=== PATIENT | male | born 1980 | race Caucasian/White ===

== ENCOUNTER 2017-04-27 15:31 | Emergency (ER) | payer OTHER ==
[2017-04-27] MEDS ORDERED: LORAZEPAM INJ 2 MG/1 ML VIAL IV ONE ×2 (15:34→19:54)
[2017-04-27 15:50] LABS: ABSOLUTE BASOPHILS # (AUTO) 0.1 10^3/uL (0.0-0.2); ABSOLUTE EOSINOPHILS # (AUTO) 0.2 10^3/uL (0.0-0.6); ABSOLUTE LYMPHOCYTES (AUTO) 1.6 10^3/uL (0.5-4.7); ABSOLUTE MONOCYTES (AUTO) 0.5 10^3/uL (0.1-1.4); ABSOLUTE NEUT (AUTO) 3.9 10^3/uL (1.7-8.2); BASOPHILS % (AUTO) 0.9 % (0-2); EOSINOPHILS % (AUTO) 3.3 % (0-6); HEMATOCRIT 44.3 % (37.9-51.0); HEMOGLOBIN 14.8 g/dL (13.5-17.0); LYMPHOCYTES % (AUTO) 25.8 % (13-45); MEAN CORPUSCULAR HEMOGLOBIN 29.2 pg (27.0-33.4); MEAN CORPUSCULAR HGB CONC 33.5 g/dL (32.0-36.0); MEAN CORPUSCULAR VOLUME 87 fl (80-97); MONOCYTES % (AUTO) 7.8 % (3-13); PLATELET COUNT 320 10^3/uL (150-450); RED BLOOD COUNT 5.09 10^6/uL (4.35-5.55); RED CELL DISTRIBUTION WIDTH 14.5 % (11.5-14.0); SEGMENTED NEUTROPHILS % (AUTO) 62.2 % (42-78); TOTAL CELLS COUNTED % (AUTO) 100 %; WHITE BLOOD COUNT 6.2 10^3/uL (4.0-10.5)
--- NOTE | 2017-04-27 15:55 | ER Document Report ---
ED General - General Stated Complaint: SUICIDAL IDEATION Time Seen by Provider: 04/27/17 15:34 Notes: 36-year-old male presents with multidrug overdose. He took 6 propranolol and 6 Seroquel this morning at the same time as he stopped drinking after a seven-day median. History of alcoholism. Positive suicidal ideation. He has been vomiting is no abdominal pain. No dizziness or fainting. Brought in by EMS with normal vital signs blood sugar. Actively suicidal. TRAVEL OUTSIDE OF THE [place] IN LAST 30 DAYS: No - Related Data Allergies/Adverse Reactions: No Known Allergies Allergy (Verified 04/27/17 17:40) Past Medical History - Social History Smoking Status: Current Every Day Smoker Smoking Education Provided: Yes - The patient ED visit today was directly related to their abuse of tobacco. Family History: Reviewed & Not Pertinent Psychiatric Medical History: Reports: Hx Depression Review of Systems - Review of Systems Notes: REVIEW OF SYSTEMS GEN: Denies fever, chills, weight loss ENT: Denies sore throat, nasal discharge, ear pain EYES: Denies blurry vision, eye pain, discharge CV: Denies chest pain, palpitations, edema RESP: Denies cough, shortness of breath, wheezing GI: Denies abdominal pain, positive nausea MSK: Denies joint pain/swelling, edema, SKIN: Denies rash, skin lesions LYMPH: Denies swollen glands/lymph nodes NEURO: Denies headache, focal weakness or numbness, dizziness PSYCH: Alcoholism and depression with suicidal ideation PHYSICAL EXAMINATION General: Acutely ill, slightly pale Head: Atraumatic, normocephalic ENT: Mouth normal, oropharynx moist, no exudates or tonsillar enlargement Eyes: Conjunctiva normal, pupils equal, lids normal Neck: No JVD, supple, no guarding CVS: Normal rate, regular rhythm, no murmurs Resp: No resp distress, equal and normal breath sounds bilaterally GI: Nondistended, soft, no tenderness to palpation, no rebound or guarding Ext: No deformities, no edema, normal range of motion in upper and lower ext Back: No CVA or midline TTP Skin: No rash, warm Lymphatic: No lymphadeopathy noted Neuro: Awake, alert. Face symmetric. GCS 15. Tremulous, mild with tongue and hand fasciculations. Psychiatric: Suicidal ideation present. Physical Exam - Vital signs Vitals: Resp BP Pulse Ox 16 100/69 92 04/27/17 15:48 04/27/17 15:48 04/27/17 15:48 Course - Re-evaluation Re-evalutation: 04/27/17 15:55 Acute ingestion of small doses of propranolol and Seroquel. Blood pressure is soft but not hypotensive, patient is not bradycardic or hypoglycemic so I doubt a significant for parental ingestion. Does not meet criteria for truncal. In terms of Seroquel he looks sluggish but is not comatose. Will check EKG for intervals, check tox labs, monitor closely. Will place on IVC papers. 04/27/17 16:30 Patient reassessed. Slightly somnolent after Ativan, but no longer exhibiting signs of withdrawal. Getting IV fluids from EMS. Labs so far are normal and EKG shows normal intervals. We will continue to observe. Placed on petition for IVC and constant with the psych team and placed a call for psychiatry consult. 04/27/17 18:08 SS. No signs of withdrawal sleeping calmly. Vital signs are normal. Lab evaluation is negative. At this point I am going to medically clear the patient for psych consult in the morning. - Vital Signs Vital signs: Temp Pulse Resp BP Pulse Ox 97.8 F 21 H 100/58 L 95 04/27/17 16:34 04/27/17 18:00 04/27/17 18:00 04/27/17 18:00 - Laboratory Result Diagrams: 04/27/17 15:00 04/27/17 15:00 Laboratory results interpreted by me: 04/27/17 04/27/17 15:00 15:00 RDW 14.5 H Chloride 96 L Glucose 161 H Salicylates < 1.0 L Acetaminophen < 10 L - EKG Interpretation by Tx EKG shows normal: Sinus rhythm Rate: Normal Rhythm: NSR - Normal intervals Critical Care Note - Critical Care Note Total time excluding time spent on procedures (mins): 32 Comments: The above patient is critically ill. Not including procedures, but including direct re-evaluations, speaking with patient and/or consultants, interpreting results, and documenting, I spent the total amount of minute listed listed above on critical care time Discharge - Discharge Clinical Impression: Alcohol withdrawal delirium, acute, hyperactive Intentional propranolol overdose Qualifiers: Encounter type: sequela Qualified Code(s): T44.7X2S - Poisoning by beta- adrenoreceptor antagonists, intentional self-harm, sequela Condition: Good Disposition: PSYCH HOSP/UNIT
[2017-04-27 16:13] LABS: ANION GAP 18 (5-19); BLOOD UREA NITROGEN 18 mg/dL (7-20); CALCIUM 8.7 mg/dL (8.4-10.2); CARBON DIOXIDE 24 mmol/L (22-30); CHLORIDE 96 mmol/L (98-107); GLUCOSE 161 mg/dL (75-110); POTASSIUM 3.9 mmol/L (3.6-5.0); SODIUM 138.1 mmol/L (137-145)
[2017-04-27 16:16] LABS: ACETAMINOPHEN < 10 ug/mL (10-30); SALICYLATE < 1.0 mg/dL (2.0-20.0)
[2017-04-27 16:29] LABS: URINE AMPHETAMINES SCREEN NEGATIVE; URINE BARBITURATES SCREEN NEGATIVE; URINE BENZODIAZEPINES SCREEN NEGATIVE; URINE COCAINE SCREEN NEGATIVE; URINE MARIJUANA (THC) SCREEN NEGATIVE; URINE METHADONE SCREEN NEGATIVE; URINE PHENCYCLIDINE SCREEN NEGATIVE
[2017-04-27] MEDS ORDERED: LORAZEPAM INJ 2 MG/1 ML VIAL ONE (20:00)
--- NOTE | 2017-04-28 10:45 | EKG REPORT ---
SEVERITY:- NORMAL ECG - SINUS RHYTHM : Confirmed by: Miguel John 28-Apr-2017 10:45:01
--- NOTE | 2017-04-28 10:47 | EKG REPORT ---
SEVERITY:- NORMAL ECG - SINUS RHYTHM : Confirmed by: Miguel John 28-Apr-2017 10:45:04
--- NOTE | 2017-04-28 18:15 | ER Document Report ---
Doctor's Note Notes: 04/28/17 18:13 Rounds earlier today: Chart reviewed and patient interviewed. Patient took an overdose of no significant consequence of about 6 propanolol and 6 Seroquel pills. He says he was thinking about suicide. Also has been drinking alcohol. Labs were all normal. Vital signs are all normal, except for one heart rate of 53. Patient appears to be medically stable for transfer or discharge. Juanita Hayes MD
--- NOTE | 2017-04-28 18:15 | PSYCHOLOGICAL NOTE ---
Psych Note - Psych Note Psych Note: Reason for consult: Suicidal ideation Time of consult 9:15 am Time of Disposition 10:30 am Contact Permissions: None Patient is a 37-year-old male. Patient reports [facility] to [facility] [place] because they have classes and groups of people who experience what he experiences in [place]. Patient reports he wants to be around other veterans. Patient reports if he is not able to get a bed at the [facility] in [place] that he wants his mother to come pick him up so she could drive him there. Patient reports he lives with his parents. Patient reports that it is around the time of the year anniversary of his first deployment to [place]. Patient reports that he wants other people to talk to about his experience. Patient reports that he was in combat while in [place]. 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 Patient reports he was diagnosed with PTSD. Patient reports that he took more than his prescribed dosage then called the hotline so that he could go to the [facility] in [place]. Patient reports he took 6 of his pills. Patient reports that he does not have a plan to kill himself but that he wants to go to an inpatient placement. Patient reports that he wanted clinician to know that if she could not get him into [place] that he would drive himself with his parents. Patient reports he does not have a social support system, does not attend any groups in [place]. Patient reports that he does not have any combat veterans in the area. She reports he rarely leaves his home and does not feel motivated to do anything. She reports that he sees an outpatient therapist periodically at the [facility] in [place]. Diagnosis: 311 (F32.9) Unspecified Depressive Disorder, per history R/O 309.9 (F43.9) Unspecified Trauma and Stressor Related Disorder (patient reported PTSD history) Impression/plan: Patient is psychiatrically cleared for discharge. Recommendation for patient to follow-up with outpatient provider at the [facility]. Clinician observed patient presented to the ED with intention of getting transferred to [facility]. Consulted with Dr. Ryder regarding the management and care of patient.
[2017-04-28 18:36] VITALS: BP 128/74
== END 2017-04-28 18:32 | disposition home or self-care (01) ==
LOC: ER 15:31
DX: T44.7X2A Poisoning by beta-adrenoreceptor antagonists, intentional self-harm, initial encounter (principal); T43.592A Poisoning by other antipsychotics and neuroleptics, intentional self-harm, initial encounter; F43.10 Post-traumatic stress disorder, unspecified; F10.231 Alcohol dependence with withdrawal delirium; F32.9 Major depressive disorder, single episode, unspecified; R11.10 Vomiting, unspecified; F17.200 Nicotine dependence, unspecified, uncomplicated
CPT/HCPCS: 93005; 96376; 99291; 96374; 36415; 80307 ×3; 85025; 80048; 93010; J2060

== ENCOUNTER 2017-08-24 09:53 | Emergency (ER) | payer OTHER ==
--- NOTE | 2017-08-24 10:13 | ER Document Report ---
ED Medical Screen (RME) - General Chief Complaint: Suicidal Ideation Stated Complaint: PYSCH EVAULATION Time Seen by Provider: 08/24/17 10:11 Notes: The patient is a 37-year-old male, past medical history PTSD, chronic alcoholic , presents with increasing drinking and combativeness. He last drank this morning and thinks he might be withdrawing. [facility] PE: Mildly agitated. Tachycardia. Appears intoxicated. I have greeted and performed a rapid initial assessment of this patient. A comprehensive ED assessment and evaluation of the patient, analysis of test results and completion of the medical decision making process will be conducted by additional ED providers. TRAVEL OUTSIDE OF THE [place] IN LAST 30 DAYS: No - Related Data Allergies/Adverse Reactions: No Known Allergies Allergy (Verified 08/24/17 09:54) Past Medical History - Social History Family history: Thyroid Disfunction Renal/ Medical History: Denies: Hx Peritoneal Dialysis Psychiatric Medical History: Reports: Hx Depression Physical Exam - Vital signs Vitals: Temp Pulse Resp BP 98.0 F 128 H 22 H 124/86 H 08/24/17 09:59 08/24/17 09:59 08/24/17 09:59 08/24/17 09:59 Course - Vital Signs Vital signs: Temp Pulse Resp BP Pulse Ox 98.0 F 128 H 22 H 124/86 H 08/24/17 09:59 08/24/17 09:59 08/24/17 09:59 08/24/17 09:59
[2017-08-24] MEDS ORDERED: NORMAL SALINE 1000 ML 1,000 ML IV PRN (10:14)
--- NOTE | 2017-08-24 10:32 | ER Document Report ---
Addendum entered and electronically signed by VIC MONTAGUE LCSWA 08/27/17 11: 58: Discharge - Discharge Clinical Impression: Alcohol abuse, Post traumatic stress disorder (PTSD), Suicidal ideation Alcohol intoxication Qualifiers: Complication of substance-induced condition: uncomplicated Qualified Code(s): F10.920 - Alcohol use, unspecified with intoxication, uncomplicated Condition: Stable Disposition: HOME, SELF-CARE Additional Instructions: ACUTE ALCOHOL INTOXICATION and ALCOHOL ABUSE: Your evaluation revealed very high levels of alcohol. You can from drinking a large amount of alcohol rapidly! Further, there's the risk of falls , traffic accidents, and fights. A high portion (about 50 percent) of the serious injuries seen in hospital emergency rooms are caused by alcohol. Alcohol overdosage is usually due to an underlying emotional or psychiatric problem. You may benefit from counselling. If "binge" drinking is an ongoing problem for you, or if you drink ANY AMOUNT of alcohol EVERY day, you most likely have a tendency to alcoholism. You should avoid alcohol totally. We can refer you for treatment. Persons with alcohol problems are often also prone to other addictions -- you should discuss any use of medications or drugs with the doctor. You should be watched at home for the next several hours by someone who has not been drinking. Get extra fluids for the next 24 hours. Call the doctor if there is repeated vomiting, increasing headache, decreasing level of alertness, or any other worsening. CHRONIC ALCOHOLISM and ALCOHOL ABUSE: Your evaluation reveals evidence of chronic alcoholism, an addiction to alcohol. The tendency to alcoholism may be inherited. Chronic use of alcohol weakens muscles, causes fatty deposits in the liver , damages the stomach, makes you more prone to infections, and can cause defects in unborn children. In the long run, brain atrophy and cirrhosis of the liver result. You are also at greater risk for certain types of cancer, such as cancer of the mouth, throat, stomach, and liver. Counselling services are available to help you. In-hospital treatment programs often help. Support groups such as Alcoholics Anonymous can be very useful in beating this addiction. Your physician can make a referral for you. As alcoholics often are prone to other addictions, you should discuss your use of any other medications with the doctor. ALCOHOL WITHDRAWAL: Your symptoms are caused by alcohol withdrawal. After a period of frequent drinking, the brain and body are changed by the alcohol. When you quit or reduce your drinking, the nervous system becomes unstable. Withdrawal symptoms can start a few hours after your last drink, but sometimes don't begin until a couple of days later. Symptoms can include shakiness, sweating, insomnia, nausea , vomiting, fearfulness, hallucinations, and seizures. In addition to the acute effects of alcohol withdrawal, we often have to deal with the medical effects of alcoholism. These problems often include dehydration, stomach irritation, intestinal bleeding, low blood sugar, liver disease, and pancreas inflammation. Treatment for alcohol withdrawal includes mild sedatives, vitamins, and fluids. You need to be with someone who can help if symptoms become severe. Many patients can withdraw at home. Admission to the hospital or a detox facility may be necessary if withdrawal symptoms are severe and uncontrollable. Abstaining from alcohol is the only effective long-term treatment. If you start drinking again, you will not be able to control yourself after the first drink. Treatment programs are available. In addition, many alcoholics benefit from Alcoholics Anonymous or other support groups available through your counselor or druze aircraft dispatcher. AL-TONYA and NIC-KENDRA are support groups for friends and family members of an alcoholic. Go to the emergency room if you develop persistent vomiting, severe abdominal pain, fever, shortness of breath, hallucinations, uncontrollable tremors, or seizures. Post-Traumatic Stress Disorder You seem to have post-traumatic stress disorder (PTSD). PTSD can cause chronic anxiety, sleeping problems, social withdrawal, and drug abuse. It can occur following a traumatic personal experience such as an accident, rape, assault, or of a loved one, or after experiencing a war or natural disaster. Symptoms may be delayed for days or even years. Emotional numbing, the inability to express grief, is usually the earliest sign. There may be apathy or agitation, aggression, and inability to perform ordinary tasks. Often there are frightening nightmares and sudden, intruding memories of the trauma. Panic attacks and feelings of guilt are common. Alcohol and drug use make post- traumatic stress symptoms worse. Medication may be temporarily necessary to combat anxiety, panic attacks, and depression. Medicine should not be considered a "cure." You must deal with the trauma and prepare to go on. Group therapy is often helpful. This helps you "talk through" the problem with others who share your symptoms. We can provide you with an appropriate referral. [facility] on 08/30/2017 at 11 AM. You have also been provided additional resources which include residential treatment programs for alcohol abuse. AT ANY TIME, IF YOUR SYMPTOMS CHANGE SIGNIFICANTLY OR WORSEN OR YOU DEVELOP NEW SYMPTOMS, RETURN TO THE EMERGENCY DEPARTMENT IMMEDIATELY FOR RE- EVALUATION. Referrals: [facility] [Provider Group] - 08/30/17 11:00 am (You also have an appointment for medication mangement tomorrow 08/28/2017 at 10:30) Original Note: ED Psych Disorder / Suicide - General Mode of Arrival: Ambulatory Information source: Patient, Relative - FATHER TRAVEL OUTSIDE OF THE [place] IN LAST 30 DAYS: No - HPI Patient complains to provider of: Agitated, Suicidal ideation Onset: Yesterday Onset was: Cannot confirm Quality of pain: No pain Severity: Moderate Suicide Risk Factors: Male, Other mental health dx. Situational problems related to: Other - PTSD Normal mood: No Associated symptoms: Agitated, Depressed, Irritable, Tearful, Unable to sleep Similar symptoms previously: No Recently seen / treated by doctor: No <SANDEEP MAHONEY - Last Filed: 08/24/17 19:40> <VIC MONTAGUE - Last Filed: 08/27/17 11:57> <CHRISTOPHER DAILEY - Last Filed: 08/27/17 16:22> - General Chief Complaint: Suicidal Ideation Stated Complaint: PYSCH EVAULATION Time Seen by Provider: 08/24/17 10:11 - HPI Notes: This patient apparently has a long-standing problem with PTSD and alcoholism. [facility]. Parent says patient ran out of all of his medicines about a month ago and did okay for a while but now is back to his depressed, alcoholic, suicidal baseline. (SANDEEP MAHONEY) - Related Data Allergies/Adverse Reactions: No Known Allergies Allergy (Verified 08/24/17 09:54) Past Medical History - General Information source: Patient, Relative - Social History Smoking Status: Unknown if Ever Smoked Cigarette use (# per day): No Chew tobacco use (# tins/day): No Frequency of alcohol use: Heavy Drug Abuse: None Family History: Reviewed & Not Pertinent Patient has suicidal ideation: No Patient has homicidal ideation: No - Past Medical History Cardiac Medical History: Reports: None Pulmonary Medical History: Reports: None EENT Medical History: Reports: None Neurological Medical History: Reports: None Endocrine Medical History: Reports: None Renal/ Medical History: Reports: None. Denies: Hx Peritoneal Dialysis Malignancy Medical History: Reports None GI Medical History: Reports: None Musculoskeltal Medical History: Reports None Psychiatric Medical History: Reports: Hx Depression, Hx Post Traumatic Stress Disorder, Other - ALCOHOLISM <SANDEEP MAHONEY - Last Filed: 08/24/17 19:40> Review of Systems - Review of Systems Constitutional: No symptoms reported EENT: No symptoms reported Cardiovascular: No symptoms reported Respiratory: No symptoms reported Gastrointestinal: Nausea Genitourinary: No symptoms reported Musculoskeletal: No symptoms reported Skin: No symptoms reported Neurological/Psychological: See HPI <SANDEEP MAHONEY - Last Filed: 08/24/17 19:40> Physical Exam - Vital signs Interpretation: Tachycardic, Tachypneic. No: Hypertensive - General General appearance: Anxious In distress: None - HEENT Head: Normocephalic Eyes: Normal Conjunctiva: Normal Ears: Normal Nasal: Normal Mouth/Lips: Normal Mucous membranes: Dry - Respiratory Respiratory status: No respiratory distress Breath sounds: Normal - Cardiovascular Rhythm: Regular Heart sounds: Normal auscultation Murmur: No - Abdominal Inspection: Normal Distension: No distension Bowel sounds: Hypoactive - Extremities General upper extremity: Normal inspection General lower extremity: Normal inspection - Neurological Neuro grossly intact: Yes Cognition: Normal Orientation: AAOx4 - Psychological Associated symptoms: Agitated, Depressed, Tearful, Other - ADMITS TO S.I. - Skin Skin Temperature: Warm Skin Moisture: Dry Skin Color: Normal Skin Turgor: Elastic <SANDEEP MAHONEY - Last Filed: 08/24/17 19:40> <VIC MONTAGUE - Last Filed: 08/27/17 11:57> <CHRISTOPHER DAILEY - Last Filed: 08/27/17 16:22> - Vital signs Vitals: Temp Pulse Resp BP 98.0 F 128 H 22 H 124/86 H 08/24/17 09:59 08/24/17 09:59 08/24/17 09:59 08/24/17 09:59 - HEENT Notes: STRONG ETHANOL ODOR TO BREATH (SANDEEP MAHONEY) Course - Laboratory Result Diagrams: 08/24/17 10:25 08/24/17 10:25 - [facility] shows normal: Sinus rhythm, [place], Intervals, QRS Complexes. abnormal: ST-T Waves - BORDERLINE T ABNLS, NS Rate: Tachycardia <DENZELSANDEEP - Last Filed: 08/24/17 19:40> - Laboratory Result Diagrams: 08/24/17 10:25 08/24/17 10:25 <VIC MONTAGUE - Last Filed: 08/27/17 11:57> - Laboratory Result Diagrams: 08/24/17 10:25 08/24/17 10:25 <CHRISTOPHER DAILEY - Last Filed: 08/27/17 16:22> - Vital Signs Vital signs: Temp Pulse Resp BP Pulse Ox 97.8 F 73 18 117/86 H 99 08/26/17 22:00 08/26/17 22:00 08/26/17 22:00 08/26/17 22:00 08/26/17 22:00 - Laboratory Laboratory results interpreted by wi: 08/24/17 08/24/17 08/24/17 10:25 10:25 11:45 RDW 14.8 H Plt Count 526 H Basophils % 2.2 H Sodium 148.8 H Glucose 113 H AST 73 H ALT 73 H Urine Protein 30 H Salicylates < 1.0 L Acetaminophen < 10 L Serum Alcohol 443 H* Discharge <SANDYMAYKELCHARLESSANDEEP - Last Filed: 08/24/17 19:40> <VIC MONTAGUE - Last Filed: 08/27/17 11:57> <CHRISTOPHER DAILEY - Last Filed: 08/27/17 16:22> - Discharge Clinical Impression: Alcohol abuse, Post traumatic stress disorder (PTSD), Suicidal ideation Alcohol intoxication Qualifiers: Complication of substance-induced condition: uncomplicated Qualified Code(s): F10.920 - Alcohol use, unspecified with intoxication, uncomplicated Condition: Stable Disposition: HOME, SELF-CARE Additional Instructions: ACUTE ALCOHOL INTOXICATION and ALCOHOL ABUSE: Your evaluation revealed very high levels of alcohol. You can from drinking a large amount of alcohol rapidly! Further, there's the risk of falls , traffic accidents, and fights. A high portion (about 50 percent) of the serious injuries seen in hospital emergency rooms are caused by alcohol. Alcohol overdosage is usually due to an underlying emotional or psychiatric problem. You may benefit from counselling. If "binge" drinking is an ongoing problem for you, or if you drink ANY AMOUNT of alcohol EVERY day, you most likely have a tendency to alcoholism. You should avoid alcohol totally. We can refer you for treatment. Persons with alcohol problems are often also prone to other addictions -- you should discuss any use of medications or drugs with the doctor. You should be watched at home for the next several hours by someone who has not been drinking. Get extra fluids for the next 24 hours. Call the doctor if there is repeated vomiting, increasing headache, decreasing level of alertness, or any other worsening. CHRONIC ALCOHOLISM and ALCOHOL ABUSE: Your evaluation reveals evidence of chronic alcoholism, an addiction to alcohol. The tendency to alcoholism may be inherited. Chronic use of alcohol weakens muscles, causes fatty deposits in the liver , damages the stomach, makes you more prone to infections, and can cause defects in unborn children. In the long run, brain atrophy and cirrhosis of the liver result. You are also at greater risk for certain types of cancer, such as cancer of the mouth, throat, stomach, and liver. Counselling services are available to help you. In-hospital treatment programs often help. Support groups such as Alcoholics Anonymous can be very useful in beating this addiction. Your physician can make a referral for you. As alcoholics often are prone to other addictions, you should discuss your use of any other medications with the doctor. ALCOHOL WITHDRAWAL: Your symptoms are caused by alcohol withdrawal. After a period of frequent drinking, the brain and body are changed by the alcohol. When you quit or reduce your drinking, the nervous system becomes unstable. Withdrawal symptoms can start a few hours after your last drink, but sometimes don't begin until a couple of days later. Symptoms can include shakiness, sweating, insomnia, nausea , vomiting, fearfulness, hallucinations, and seizures. In addition to the acute effects of alcohol withdrawal, we often have to deal with the medical effects of alcoholism. These problems often include dehydration, stomach irritation, intestinal bleeding, low blood sugar, liver disease, and pancreas inflammation. Treatment for alcohol withdrawal includes mild sedatives, vitamins, and fluids. You need to be with someone who can help if symptoms become severe. Many patients can withdraw at home. Admission to the hospital or a detox facility may be necessary if withdrawal symptoms are severe and uncontrollable. Abstaining from alcohol is the only effective long-term treatment. If you start drinking again, you will not be able to control yourself after the first drink. Treatment programs are available. In addition, many alcoholics benefit from Alcoholics Anonymous or other support groups available through your counselor or druze aircraft dispatcher. AL-ANOSanta and NIC-TEEN are support groups for friends and family members of an alcoholic. Go to the emergency room if you develop persistent vomiting, severe abdominal pain, fever, shortness of breath, hallucinations, uncontrollable tremors, or seizures. Post-Traumatic Stress Disorder You seem to have post-traumatic stress disorder (PTSD). PTSD can cause chronic anxiety, sleeping problems, social withdrawal, and drug abuse. It can occur following a traumatic personal experience such as an accident, rape, assault, or of a loved one, or after experiencing a war or natural disaster. Symptoms may be delayed for days or even years. Emotional numbing, the inability to express grief, is usually the earliest sign. There may be apathy or agitation, aggression, and inability to perform ordinary tasks. Often there are frightening nightmares and sudden, intruding memories of the trauma. Panic attacks and feelings of guilt are common. Alcohol and drug use make post- traumatic stress symptoms worse. Medication may be temporarily necessary to combat anxiety, panic attacks, and depression. Medicine should not be considered a "cure." You must deal with the trauma and prepare to go on. Group therapy is often helpful. This helps you "talk through" the problem with others who share your symptoms. We can provide you with an appropriate referral. Please follow-up with your local [facility] for your continued substance abuse and mental health treatment on 08/30/2017 at 11 AM. You have also been provided additional resources which include residential treatment programs for alcohol abuse. AT ANY TIME, IF YOUR SYMPTOMS CHANGE SIGNIFICANTLY OR WORSEN OR YOU DEVELOP NEW SYMPTOMS, RETURN TO THE EMERGENCY DEPARTMENT IMMEDIATELY FOR RE- EVALUATION. Prescriptions: Olanzapine [Zyprexa 5 mg Tablet] 5 mg PO QHS #14 tablet Buspirone HCl [Buspar 5 mg Tablet] 1 tab PO BID #30 tab Referrals: [facility] [Provider Group] - 08/30/17 11:00 am (You also have an appointment for medication mangement tomorrow 08/28/2017 at 10:30)
--- NOTE | 2017-08-24 10:37 | EKG REPORT ---
SEVERITY:- BORDERLINE ECG - SINUS TACHYCARDIA BORDERLINE T WAVE ABNORMALITIES : Confirmed by: Bry Gatica MD 24-Aug-2017 10:36:18
[2017-08-24 10:41] LABS: ABSOLUTE BASOPHILS # (AUTO) 0.1 10^3/uL (0.0-0.2); ABSOLUTE EOSINOPHILS # (AUTO) 0.3 10^3/uL (0.0-0.6); ABSOLUTE LYMPHOCYTES (AUTO) 1.8 10^3/uL (0.5-4.7); ABSOLUTE MONOCYTES (AUTO) 0.4 10^3/uL (0.1-1.4); ABSOLUTE NEUT (AUTO) 2.2 10^3/uL (1.7-8.2); BASOPHILS % (AUTO) 2.2 % (0-2); EOSINOPHILS % (AUTO) 5.7 % (0-6); HEMATOCRIT 44.5 % (37.9-51.0); HEMOGLOBIN 15.2 g/dL (13.5-17.0); LYMPHOCYTES % (AUTO) 36.8 % (13-45); MEAN CORPUSCULAR HEMOGLOBIN 31.2 pg (27.0-33.4); MEAN CORPUSCULAR HGB CONC 34.2 g/dL (32.0-36.0); MEAN CORPUSCULAR VOLUME 91 fl (80-97); MONOCYTES % (AUTO) 9.1 % (3-13); PLATELET COUNT 526 10^3/uL (150-450); RED BLOOD COUNT 4.89 10^6/uL (4.35-5.55); RED CELL DISTRIBUTION WIDTH 14.8 % (11.5-14.0); SEGMENTED NEUTROPHILS % (AUTO) 46.2 % (42-78); TOTAL CELLS COUNTED % (AUTO) 100 %; WHITE BLOOD COUNT 4.8 10^3/uL (4.0-10.5)
[2017-08-24 11:02] LABS: ALANINE AMINOTRANSFERASE 73 U/L (21-72); ALBUMIN 4.7 g/dL (3.5-5.0); ALKALINE PHOSPHATASE 81 U/L (38-126); ASPARTATE AMINO TRANSFERASE 73 U/L (17-59); BILIRUBIN,DIRECT 0.3 mg/dL (0.0-0.4); BILIRUBIN,TOTAL 0.3 mg/dL (0.2-1.3); BLOOD UREA NITROGEN 10 mg/dL (7-20); CALCIUM 8.8 mg/dL (8.4-10.2); GLUCOSE 113 mg/dL (75-110); POTASSIUM 4.3 mmol/L (3.6-5.0); TOTAL PROTEIN 7.8 g/dL (6.3-8.2)
[2017-08-24 11:07] LABS: CARBON DIOXIDE 28 mmol/L (22-30); CHLORIDE 103 mmol/L (98-107); SODIUM 148.8 mmol/L (137-145)
[2017-08-24 11:11] LABS: ACETAMINOPHEN < 10 ug/mL (10-30); SALICYLATE < 1.0 mg/dL (2.0-20.0)
[2017-08-24 11:12] LABS: ANION GAP 18 (5-19)
[2017-08-24 11:15] LABS: ALCOHOL 443 mg/dL (NONE DETECTED)
[2017-08-24] MEDS ORDERED: ONDANSETRON 4 MG TAB.RAPDIS PO ONE (11:19)
[2017-08-24] MEDS ORDERED: CLORAZEPATE DIPOTASSIUM 7.5 MG TABLET PO ONE (11:19)
[2017-08-24] MEDS ORDERED: DIPHENHYDRAMINE HCL 50 MG/ML VIAL IM ONE (13:14)
[2017-08-24] MEDS ORDERED: HALOPERIDOL LACTATE INJ 5 MG/1 ML VIAL IM ONE (13:14)
--- NOTE | 2017-08-24 13:21 | PSYCHOLOGICAL NOTE ---
Psych Note - Psych Note Psych Note: The patient is a 37-year-old male, past medical history PTSD, chronic alcoholic , presents with increasing drinking and combativeness. He last drank this morning and thinks he might be withdrawing. [facility] Patient is currently heavily intoxicated. Patient disclosed that he has been binge drinking for the last 2 weeks. Patient is withdrawn and unwilling to engage with clinician. Patient refuses to make eye contact and asks for privacy. When it was explained the patient is on IVC he started to cry but still refused to look at clinician. no medication recommendations at this time 291.9 (F10.99) Unspecified Alcohol Related Disorder, per history 311 (F32.9) Unspecified Depressive Disorder, per history 309.9 (F43.9) Unspecified Trauma and Stressor Related Disorder Impression/Plan: Recommendation to IVC. Patient is currently intoxicated and has impaired insight, judgment and impulse control. Patient is withdrawn and unwilling to engage with clinician. When it was explained the patient is on IVC he started to cry but still refused to look at clinician. Consulted with Dr. Ryder regarding the management and care of patient. ED Doctor in agreement with recommendations.
[2017-08-24 13:24] LABS: AMORPHOUS SEDIMENT,URINE TRACE /HPF; APPEARANCE,URINE CLOUDY; BILIRUBIN,URINE NEGATIVE (NEGATIVE); COLOR,URINE YELLOW; GLUCOSE, URINE NEGATIVE (NEGATIVE); KETONES,URINE NEGATIVE (NEGATIVE); LEUKOCYTE ESTERASE,URINE NEGATIVE (NEGATIVE); NITRITE,URINE NEGATIVE (NEGATIVE); PROTEIN,URINE 30 mg/dL (NEGATIVE); URINE SPECIFIC GRAVITY 1.014; UROBILINOGEN,URINE NEGATIVE mg/dL (<2.0)
[2017-08-24 13:29] LABS: URINE AMPHETAMINES SCREEN NEGATIVE; URINE BARBITURATES SCREEN NEGATIVE; URINE BENZODIAZEPINES SCREEN NEGATIVE; URINE COCAINE SCREEN NEGATIVE; URINE MARIJUANA (THC) SCREEN NEGATIVE; URINE METHADONE SCREEN NEGATIVE; URINE PHENCYCLIDINE SCREEN NEGATIVE
[2017-08-25] MEDS ORDERED: LORAZEPAM INJ 2 MG/1 ML VIAL IM ONE (06:26)
--- NOTE | 2017-08-25 09:38 | ER Document Report ---
Doctor's Note Notes: 08/25/17 09:36 I saw and evaluated the patient. Vitals stable. Patient has no complaints at this time. Patient complained of tremors early this AM. Dr. Diaz saw the patient. Ativan provided although he did not believe the patient was in true DTs. Patient denies daily ETOH consumption. Patient denies suicidal or homicidal ideations. No delusions or hallucinations. I will discuss plan of care with behavioral health.
[2017-08-25] MEDS ORDERED: LORAZEPAM 1 MG TABLET PO ONE (12:57)
[2017-08-25] MEDS ORDERED: OLANZAPINE 5 MG TABLET PO ONE (12:57)
--- NOTE | 2017-08-26 09:09 | ER Document Report ---
Doctor's Note Notes: 08/26/17 09:09 I have evaluated this patient this am and has no c/o at this time. Feels all of their needs are being met and physical exam is normal. Awaiting dispositon per mental health. 08/26/17 15:27 Mental Health is recommending Zyprexa 5mg qHS and Buspar 5 mg bid.
[2017-08-26] MEDS ORDERED: BUSPIRONE HCL 10 MG TABLET PO SCH (15:30)
[2017-08-26] MEDS ORDERED: BUSPIRONE HCL 10 MG TABLET PO ONE (16:15)
--- NOTE | 2017-08-26 17:31 | PSYCHOLOGICAL NOTE ---
Psych Note - Psych Note Psych Note: Reason for Consult: suicidal ideation and substance abuse The patient is a 37-year-old male, past medical history PTSD, chronic alcoholic , presents with increasing drinking and combativeness. He last drank this morning and thinks he might be withdrawing. [facility] Clinician conducted checking with patient Patient discloses that he is concerned about taking up in bed here in [facility] ED. He continues to state that he is found he has had more success going straight to [place] in receiving services from the [facility]. He disclosed that in 2017 he had a better year because he was in treatment still, he confirms that he is not completely medication compliant currently. Patient confirms that he probably made suicidal comments while under the influence but denies having a plan. Clinician attempted to contact patient's mother; voicemail not set up. Medication recommendations per [facility]'s contracted psychiatrist Dr. Tami TOLENTINO are as follows 1. Zyprexa 5 mg nightly 2. BuSpar 5 mg twice daily Diagnosis 291.9 (F10.99) Unspecified Alcohol Related Disorder, per history 311 (F32.9) Unspecified Depressive Disorder, per history 309.9 (F43.9) Unspecified Trauma and Stressor Related Disorder Impression/Plan: Recommendation to continue under IVC. Patient is in need of significant treatment for both his mental health and substance abuse. Patient has a history of binge drinking and suicidal attempts. Patient is recommended for intensive treatment through the [facility]. Consulted with Dr. Ryder regarding the management and care of patient. ED Doctor in agreement with recommendations.
[2017-08-26] MEDS ORDERED: OLANZAPINE 5 MG TABLET PO SCH (22:00)
[2017-08-27] MEDS ORDERED: BUSPIRONE HCL 10 MG TABLET PO SCH (06:00)
--- NOTE | 2017-08-27 09:48 | ER Document Report ---
Doctor's Note Notes: 08/27/17 09:41 Pt is aware that [facility] but is to be discharged home to his parents. He denies any alcohol withdrawals. Pt communicates well and is cooperative although he appears to be irritated that he is here. PHYSICAL EXAM: GENERAL: Alert. No acute distress. HEAD: Normocephalic, atraumatic. EYES: Pupils equal, round, and reactive to light. Extraocular movements intact. ENT: Oral mucosa moist, tongue midline. NECK: Full range of motion. Supple. Trachea midline. LUNGS: Clear to auscultation bilaterally, no wheezes, rales, or rhonchi. No respiratory distress. HEART: Regular rate and rhythm. No murmurs, gallops, or rubs. ABDOMEN: Soft, non-tender. Non-distended. Bowel sounds present in all 4 quadrants. No guarding, rebound, or rigidity. EXTREMITIES: Moves all 4 extremities spontaneously. NEUROLOGICAL: Alert and oriented x3. Normal speech. PSYCH: Communicates well. Appears irritated that he is here, however cooperative. SKIN: Warm, dry. (BRENDA KARIMI) 08/27/17 20:00 Patient is stable, father came to pick him up around 5:00 in the evening, discharged to home with his parents. Prescriptions written for 2 weeks of medications that we started here. (CHRISTOPHER DAILEY) Scribe Documentation - Scribe Written by Scribe:: Brenda Karimi, [place] 08/27/17 1142 acting as scribe for :: Saman
--- NOTE | 2017-08-27 11:12 | PSYCHOLOGICAL NOTE ---
Psych Note - Psych Note Psych Note: Reason for Consult: suicidal ideation and substance abuse The patient is a 37-year-old male, past medical history PTSD, chronic alcoholic , presents with increasing drinking and combativeness. He last drank this morning and thinks he might be withdrawing. [facility] Clinician conducted checking with patient Patient disclosed that he is feeling "all right" and denies suicidal and homicidal ideation. Patient asked with the current plan is for today. He reports that his mother works at [employer] if her cell phone is not working. He confirms he has his father's phone number and his cell phone and agrees to allow clinician to make contact with him. Clinician attempted to contact patient's mother again today; voicemail not set up. Clinician spoke with patient's father. He disclosed the patient's PTSD and alcoholism has created the patient needing services like "[facility]...He has been in many [facility] facilities and as soon as the probe to deep he leaves...he has many medications then stop taking them...then starts self medicating because he is an alcoholic." He continued to report the patient "This last week he was hibernating in his room and was continually drunk...I have had to disable his car because he loves to drink drunk." Behavior health team contacted local [facility] to set up an appointment. Patient's appointment is September 10, 2017 at 2 PM. Medication recommendations per [facility]'s contracted psychiatrist Dr. Tami TOLENTINO are as follows 1. Zyprexa 5 mg nightly 2. BuSpar 5 mg twice daily Diagnosis 291.9 (F10.99) Unspecified Alcohol Related Disorder, per history 311 (F32.9) Unspecified Depressive Disorder, per history 309.9 (F43.9) Unspecified Trauma and Stressor Related Disorder Impression/Plan: Patient is recommended for rescind of IVC and is considered cleared from acute psychiatric services. Patient is no longer under the influence and denies suicidal and homicidal ideation. Patient discloses difficulty in maintaining sobriety and has had a very difficult time with his treatment of PTSD. Patient has an outpatient mental health provider through the [facility]. His next appointment is September 10, 2017 at 2 PM. [facility]. Additional information has been provided to the patient in regards to long-term residential substance abuse treatment. Consulted with Dr. Ryder regarding the management and care of patient. ED Doctor in agreement with recommendations.
[2017-08-27 17:33] VITALS: BP 115/80
== END 2017-08-27 17:33 | disposition home or self-care (01) ==
LOC: ER 09:53
DX: F10.920 Alcohol use, unspecified with intoxication, uncomplicated (principal); F43.10 Post-traumatic stress disorder, unspecified; R45.851 Suicidal ideations
CPT/HCPCS: 93005; 99285; 96372; 96360; 36415; 80307 ×4; 85025; 80053; 81001; 93010; J1200; S0119; J1630; J2060; J7030; J3490

== ENCOUNTER 2018-06-06 03:23 | Emergency (ER) | payer OTHER ==
[2018-06-06] MEDS ORDERED: LORAZEPAM INJ 2 MG/1 ML VIAL IV ONE ×3 (04:23→09:12)
[2018-06-06] MEDS ORDERED: NORMAL SALINE 1000 ML 1,000 ML IV ONE (04:23)
[2018-06-06] MEDS ORDERED: ONDANSETRON HCL INJ/PF 4 MG/2 ML SDV IV ONE ×2 (04:24→07:11)
[2018-06-06 04:38] LABS: ABSOLUTE BASOPHILS # (AUTO) 0.1 10^3/uL (0.0-0.2); ABSOLUTE LYMPHOCYTES (AUTO) 2.1 10^3/uL (0.5-4.7); ABSOLUTE MONOCYTES (AUTO) 0.9 10^3/uL (0.1-1.4); ABSOLUTE NEUT (AUTO) 7.8 10^3/uL (1.7-8.2); BASOPHILS % (AUTO) 0.7 % (0-2); EOSINOPHILS % (AUTO) 0.5 % (0-6); HEMATOCRIT 49.3 % (37.9-51.0); HEMOGLOBIN 16.9 g/dL (13.5-17.0); LYMPHOCYTES % (AUTO) 19.6 % (13-45); MEAN CORPUSCULAR HEMOGLOBIN 30.1 pg (27.0-33.4); MEAN CORPUSCULAR HGB CONC 34.2 g/dL (32.0-36.0); MEAN CORPUSCULAR VOLUME 88 fl (80-97); MONOCYTES % (AUTO) 8.1 % (3-13); PLATELET COUNT 395 10^3/uL (150-450); RED BLOOD COUNT 5.61 10^6/uL (4.35-5.55); RED CELL DISTRIBUTION WIDTH 14.1 % (11.5-14.0); SEGMENTED NEUTROPHILS % (AUTO) 71.1 % (42-78); TOTAL CELLS COUNTED % (AUTO) 100 %; WHITE BLOOD COUNT 10.9 10^3/uL (4.0-10.5)
[2018-06-06 04:59] LABS: ALANINE AMINOTRANSFERASE 31 U/L (21-72); ALBUMIN 5.1 g/dL (3.5-5.0); ALCOHOL 267 mg/dL (NONE DETECTED); ALKALINE PHOSPHATASE 115 U/L (38-126); ASPARTATE AMINO TRANSFERASE 62 U/L (17-59); BILIRUBIN,DIRECT 0.3 mg/dL (0.0-0.4); BILIRUBIN,TOTAL 0.7 mg/dL (0.2-1.3); BLOOD UREA NITROGEN 26 mg/dL (7-20); CALCIUM 9.5 mg/dL (8.4-10.2); CARBON DIOXIDE 23 mmol/L (22-30); CHLORIDE 100 mmol/L (98-107); GLUCOSE 146 mg/dL (75-110)
[2018-06-06 05:00] LABS: ACETAMINOPHEN < 10 ug/mL (10-30); SALICYLATE < 1.0 mg/dL (2.0-20.0)
[2018-06-06 05:03] LABS: SODIUM 142.7 mmol/L (137-145)
[2018-06-06 05:04] LABS: ANION GAP 20 (5-19)
--- NOTE | 2018-06-06 05:10 | ER Document Report ---
ED General - General TRAVEL OUTSIDE OF THE U.S. IN LAST 30 DAYS: No <MOHINDER SAMUEL - Last Filed: 06/06/18 05:24> <VIC MONTAGUE - Last Filed: 06/06/18 12:06> <VANESSA NELSON - Last Filed: 06/06/18 12:23> - General Chief Complaint: ETOH Abuse Stated Complaint: WITHDRAW Time Seen by Provider: 06/06/18 04:23 Primary Care Provider: [facility] [Provider Group] - 06/18/18 [facility] [Outside] - Follow up as needed Notes: Patient is a pleasant 38-year-old male who presents with complaint of severe anxiety. He says that he used to drink alcohol on a regular basis but has been clean for 6 months. Tonight he was upset and sad and therefore drank a large amount of vodka. Last drink was approximately 4 hours ago. He therefore came to the ER because he was vomiting and very tearful and upset. He denies wanting to hurt himself. He says he does take medications for anxiety and depression. (MOHINDER SAMUEL) - Related Data Allergies/Adverse Reactions: No Known Allergies Allergy (Verified 08/24/17 09:54) Past Medical History - Social History Smoking Status: Unknown if Ever Smoked Chew tobacco use (# tins/day): No Frequency of alcohol use: None Drug Abuse: None Family History: Reviewed & Not Pertinent Patient has suicidal ideation: No Patient has homicidal ideation: No Renal/ Medical History: Denies: Hx Peritoneal Dialysis Psychiatric Medical History: Reports: Hx Depression, Hx Post Traumatic Stress Disorder <MOHINDER SAMUEL - Last Filed: 06/06/18 05:24> Review of Systems <MOHINDER SAMUEL - Last Filed: 06/06/18 05:24> - Review of Systems Notes: My Normal Review Basic REVIEW OF SYSTEMS: CONSTITUTIONAL : Denies fever, chills, or sweats. Denies recent illness. EENT: Denies eye, ear, throat, or mouth pain or symptoms. Denies nasal or sinus congestion. CARDIOVASCULAR: Denies chest pain. RESPIRATORY: Denies cough, cold, or chest congestion. Denies shortness of breath, difficulty breathing, or wheezing. GASTROINTESTINAL: Denies abdominal pain. Recurrent vomiting. MUSCULOSKELETAL: Denies neck or back pain or joint pain or swelling. SKIN: Denies rash or skin lesions. NEUROLOGICAL: Denies altered mental status or loss of consciousness. Denies headache. Denies weakness or paralysis or loss of use of either side. Denies problems with gait or speech. Denies sensory or motor loss. PSYCHIATRIC: Anxiety. Depression. Denies suicidal thoughts. ALL OTHER SYSTEMS REVIEWED AND NEGATIVE. (MOHINDER SAMUEL) Physical Exam <MOHINDER SAMUEL - Last Filed: 06/06/18 05:24> - Vital signs Vitals: Temp Pulse Resp BP Pulse Ox 98.3 F 131 H 22 H 141/93 H 96 06/06/18 03:34 06/06/18 03:34 06/06/18 03:34 06/06/18 03:34 06/06/18 03:34 - Notes Notes: General Appearance: Patient actively trying to vomit. He is very tearful and anxious. Vitals: reviewed, See vital signs table. Head: no swelling or tenderness to the head Eyes: PERRL, EOMI, Conjuctiva clear Mouth: No decreasd moisture Lungs: No wheezing, No rales, No rhonci, No accessory muscle use, good air exchange bilaterally. Heart: Cardiac rate, Regular rythm, No murmur, no rub Abdomen: Normal BS, soft, No rigidity, No abdominal tenderness, No guarding, no rebound, no abdominal masses, no organomegaly Extremities: strength 5/5 in all extremities, good pulses in all extremities, no swelling or tenderness in the extremities, no edema. Skin: warm, dry, appropriate color, no rash Neuro: speech clear, oriented x 3, normal affect, responds appropriately to questions. Patient moves all extremities without difficulty. Distal sensation intact. Symmetric facial movement. Psychiatric: Patient is very tearful and sad. He is also very anxious on exam. (MOHINDER SAMUEL) Course - Laboratory Result Diagrams: 06/06/18 04:27 06/06/18 04:27 <MOHINDER SAMUEL - Last Filed: 06/06/18 05:24> - Laboratory Result Diagrams: 06/06/18 04:27 06/06/18 04:27 <VIC MONTAGUE - Last Filed: 06/06/18 12:06> - Laboratory Result Diagrams: 06/06/18 04:27 06/06/18 04:27 <VANESSA NELSON - Last Filed: 06/06/18 12:23> - Re-evaluation Re-evalutation: 06/06/18 05:09 On reevaluation patient is now calm. He is no longer vomiting. He was sleeping when into the room. When I awoke him to ask him how he is doing he said he is feeling some better but then started crying again. 06/06/18 05:24 Patient is starting to have some shaking and then is tachycardic again. Patient feels as if he is going through alcohol withdrawal. Be very odd for him to actually be having alcohol withdrawal being that this is the first time he is drinking over 6 months. I talked to him about this. I feel that is probably likely more of an anxiety component but the patient still feels he is having withdrawal. Either way, treatment is the same whith is benzodiazepine medications. I will give him 5 mg of Valium IV to see if this helps calm him down again. (MOHINDER SAMUEL) 06/06/18 10:40 Patient has been seen and evaluated resting comfortably no acute distress. Laboratory values previous provider note and vital signs have been evaluated. Patient otherwise looks to be stable for disposition/transfer. 06/06/18 12:22 Patient was evaluated by psychiatric team at this time who recommends discharge home. Patient with no homicidal suicidal ideation upon my reevaluation. Patient sleeping easily arousable upon arousing the patient he does start to have facial twitching and tremors that go away when the patient is redirected. In spite of the patient that we will give him a prescription for Librium tapering patient agrees to follow-up with his [facility] provider and agrees with disposition home. (VANESSA NELSON) - Vital Signs Vital signs: Temp Pulse Resp BP Pulse Ox 97.8 F 103 H 19 97/50 L 94 06/06/18 09:01 06/06/18 11:47 06/06/18 11:47 06/06/18 09:24 06/06/18 11:47 - Laboratory Laboratory results interpreted by me: 06/06/18 06/06/18 06/06/18 04:27 04:27 08:15 WBC 10.9 H RBC 5.61 H RDW 14.1 H Anion Gap 20 H BUN 26 H Glucose 146 H AST 62 H Total Protein 9.0 H Albumin 5.1 H Urine Protein 100 H Urine Ketones 20 H Salicylates < 1.0 L Acetaminophen < 10 L Discharge <MOHINDER SAMUEL - Last Filed: 06/06/18 05:24> <CLARIVIC - Last Filed: 06/06/18 12:06> <VANESSA NELSON - Last Filed: 06/06/18 12:23> - Discharge Clinical Impression: Alcohol abuse Condition: Stable Disposition: HOME, SELF-CARE Additional Instructions: You have been evaluated with medical and behavioral health teams and been deemed appropriate for discharge. You are highly encouraged to follow-up with [facility] Please discuss with them substance abuse treatment options. ACUTE ALCOHOL INTOXICATION and ALCOHOL ABUSE: Your evaluation revealed very high levels of alcohol. You can from drinking a large amount of alcohol rapidly! Further, there's the risk of falls, traffic accidents, and fights. A high portion (about 50 percent) of the s erious injuries seen in hospital emergency rooms are caused by alcohol. Alcohol overdosage is usually due to an underlying emotional or psychiatric problem. You may benefit from counselling. If "binge" drinking is an ongoing problem for you, or if you drink ANY AMOUNT of alcohol EVERY day, you most likely have a tendency to alcoholism. You should avoid alcohol totally. We can refer you for treatment. Persons with alcohol problems are often also prone to other addictions -- you should discuss any use of medications or drugs with the doctor. You should be watched at home for the next several hours by someone who has not been drinking. Get extra fluids for the next 24 hours. Call the doctor if there is repeated vomiting, increasing headache, decreasing level of alertness, or any other worsening. CHRONIC ALCOHOLISM and ALCOHOL ABUSE: Your evaluation reveals evidence of chronic alcoholism, an addiction to alcohol. The tendency to alcoholism may be inherited. Chronic use of alcohol weakens muscles, causes fatty deposits in the liver, damages the stomach, makes you more prone to infections, and can cause defects in unborn children. In the long run, brain atrophy and cirrhosis of the liver result. You are also at greater risk for certain types of cancer, such as cancer of the mouth, throat, stomach, and liver. Counselling services are available to help you. In-hospital treatment programs often help. Support groups such as Alcoholics Anonymous can be very useful in beating this addiction. Your physician can make a referral for you. As alcoholics often are prone to other addictions, you should discuss your use of any other medications with the doctor. ALCOHOL WITHDRAWAL: Your symptoms are caused by alcohol withdrawal. After a period of frequent drinking, the brain and body are changed by the alcohol. When you quit or reduce your drinking, the nervous system becomes unstable. Withdrawal symptoms can start a few hours after your last drink, but sometimes don't begin until a couple of days later. Symptoms can include shakiness, sweating, insomnia, nausea, vomiting, fearfulness, hallucinations, and seizures. In addition to the acute effects of alcohol withdrawal, we often have to deal with the medical effects of alcoholism. These problems often include dehydration, stomach irritation, intestinal bleeding, low blood sugar, liver disease, and pancreas inflammation. Treatment for alcohol withdrawal includes mild sedatives, vitamins, and fluids. You need to be with someone who can help if symptoms become severe. Many patients can withdraw at home. Admission to the hospital or a detox facility may be necessary if withdrawal symptoms are severe and uncontrollable. Abstaining from alcohol is the only effective long-term treatment. If you start drinking again, you will not be able to control yourself after the first drink. Treatment programs are available. In addition, many alcoholics benefit from Alcoholics Anonymous or other support groups available through your counselor or yazdanism professor of social work. AL-ANON and ALA-TEEN are support groups for friends and family members of an alcoholic. Go to the emergency room if you develop persistent vomiting, severe abdominal pain, fever, shortness of breath, hallucinations, uncontrollable tremors, or seizures. FOLLOW-UP CARE: If you have been referred to a physician for follow-up care, call the physicians office for an appointment as you were instructed or within the next two days. If you experience worsening or a significant change in your symptoms, notify the physician immediately or return to the Emergency Department at any time for re-evaluation. Prescriptions: Chlordiazepoxide HCl [Librium 25 mg Capsule] 1 cap PO TID #6 capsule Referrals: [facility] [Provider Group] - 06/18/18 [facility] [Outside] - Follow up as needed
[2018-06-06] MEDS ORDERED: DIAZEPAM INJ 10 MG/2 ML DISP.SYRIN IV ONE (05:24)
[2018-06-06] MEDS ORDERED: RINGERS SOLUTION,LACTATED 1,000 ML IV ONE (05:50)
[2018-06-06 08:43] LABS: APPEARANCE,URINE SLIGHTLY-CLOUDY; BILIRUBIN,URINE NEGATIVE (NEGATIVE); COLOR,URINE YELLOW; GLUCOSE, URINE NEGATIVE (NEGATIVE); KETONES,URINE 20 mg/dL (NEGATIVE); LEUKOCYTE ESTERASE,URINE NEGATIVE (NEGATIVE); NITRITE,URINE NEGATIVE (NEGATIVE); PROTEIN,URINE 100 mg/dL (NEGATIVE); URINE SPECIFIC GRAVITY 1.024; UROBILINOGEN,URINE NEGATIVE mg/dL (<2.0)
[2018-06-06 08:57] LABS: URINE AMPHETAMINES SCREEN NEGATIVE; URINE BARBITURATES SCREEN NEGATIVE; URINE BENZODIAZEPINES SCREEN NEGATIVE; URINE COCAINE SCREEN NEGATIVE; URINE MARIJUANA (THC) SCREEN NEGATIVE; URINE METHADONE SCREEN NEGATIVE; URINE PHENCYCLIDINE SCREEN NEGATIVE
--- NOTE | 2018-06-06 09:51 | EKG REPORT ---
SEVERITY:- ABNORMAL ECG - BORDERLINE RIGHT AXIS DEVIATION BORDERLINE T ABNORMALITIES, INFERIOR LEADS SINUS RHYTHM : Confirmed by: Aziza Parsons MD 06-Jun-2018 09:50:33
--- NOTE | 2018-06-06 11:59 | PSYCHOLOGICAL NOTE ---
Psych Note - Psych Note Date seen by psych provider: 06/06/18 Time seen by psych provider: 07:55 Psych Note: Reason for Consult: substance abuse Patient denies consent for plan of care to be discussed with anyone Patient is a pleasant 38-year-old male who presents with complaint of severe anxiety. He says that he used to drink alcohol on a regular basis but has been clean for 6 months. Clinician attempted to contact patient's mother for collateral; however, phone number in system is disconnected. There are no other numbers in the system for the patient and there are no phone numbers written in the patient's paper chart. Patient is sleeping and had to be awoken but was immediately alert and orientated person, place, time and circumstance. Mood and affect is currently flat; patient is currently hung over. Delusions are absent and behaviours are congruent with an intact reality based presentation (ie organized and linear thought processes). Eye contact is poor as patient keeps his eyes closed. intellectual abilities appear to be with normal range. Conversational speech are within normal rate, tone and prosody. attention and concentration is good. Insight, judgment and impulse control is fair. Diagnosis 291.9 (F10.99) Unspecified Alcohol Related Disorder, per history 311 (F32.9) Unspecified Depressive Disorder, per history 309.9 (F43.9) Unspecified Trauma and Stressor Related Disorder Impression/Plan: Patient is cleared for acute psychiatric services. Patient presented to [facility]'s with concerns of relapsing after 6 months of sobriety. He is able to identify his trigger was returning to [place]. He denies any thoughts of wanting to harm himself or others. He confirms he has an upcoming mental health appointment with his outpatient mental health provider, [facility], on June 18, 2018. He confirms he would like to speak with them during his appointment treatment options for his alcoholism i.e. detox and/or ongoing substance use treatment. When developing plan for transportation home, patient declines assistance from clinician to contact family or friends. Patient discloses he would like to set up his own transportation home after discharge. He identifies that he will be contacting [facility]. Dr. Ryder was consulted on the care and management of this patient; attending physician is in agreement with recommendations and disposition.
[2018-06-06 13:24] VITALS: BP 113/81
== END 2018-06-06 13:46 | disposition home or self-care (01) ==
LOC: ER 03:23
DX: F10.10 Alcohol abuse, uncomplicated (principal); R11.10 Vomiting, unspecified; F41.9 Anxiety disorder, unspecified; F32.9 Major depressive disorder, single episode, unspecified; Z79.899 Other long term (current) drug therapy; F43.10 Post-traumatic stress disorder, unspecified; R00.0 Tachycardia, unspecified
CPT/HCPCS: 93005; 96376; 99285; 96361; 96374; 96375; 36415; 80307 ×4; 85025; 80053; 81001; 93010; J3360; J2060; J2405; J7030; J7120

== ENCOUNTER 2019-08-14 12:34 | Emergency (ER) | payer OTHER ==
[2019-08-14] MEDS ORDERED: NORMAL SALINE 1000 ML 1,000 ML IV ONE (12:57)
--- NOTE | 2019-08-14 12:58 | ER Document Report ---
ED Medical Screen (RME) - General Chief Complaint: Alcohol Withdrawl Stated Complaint: WITHDRAWAL SYMPTOMS/ALCOHOL Time Seen by Provider: 08/14/19 12:54 Notes: Patient is a 39-year-old male who presents emergency department with alcohol withdrawals. Patient states that he drinks [employer]. Last drink was this morning. Exam: Tachycardic. I have greeted and performed a rapid initial assessment of this patient. A comprehensive ED assessment and evaluation of the patient, analysis of test results and completion of medical decision making process will be conducted by an additional ED providers. TRAVEL OUTSIDE OF THE U.S. IN LAST 30 DAYS: No - Related Data Allergies/Adverse Reactions: No Known Allergies Allergy (Verified 08/24/17 09:54) Past Medical History - Social History Family history: Thyroid Disfunction Renal/ Medical History: Denies: Hx Peritoneal Dialysis Psychiatric Medical History: Reports: Hx Depression, Hx Post Traumatic Stress Disorder
--- NOTE | 2019-08-14 13:06 | ER Document Report ---
ED General - General Chief Complaint: Alcohol Withdrawl Stated Complaint: WITHDRAWAL SYMPTOMS/ALCOHOL Time Seen by Provider: 08/14/19 12:54 [facility]: [facility] [[facility] - Follow up as needed Mode of Arrival: Ambulatory Information source: Patient Notes: ED Medical Screen (RME) - General Chief Complaint: Alcohol Withdrawl Stated Complaint: WITHDRAWAL SYMPTOMS/ALCOHOL Time Seen by Provider: 08/14/19 12:54 Notes: Patient is a 39-year-old male who presents emergency department with alcohol withdrawals. Patient states that he drinks [employer]. Last drink was this morning. Exam: Tachycardic. 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 Patient usually daily drinks 24 cans of "[employer] [place] yadira". he has had at least 4 5 times of DTs and therefore he knew his symptoms and began drinking again this morning. Patient's heart rate is about 140 bpm. He denies any visual problems or any hallucinations at this time. He denies any cough or cold symptoms. He does admit to some nausea. TRAVEL OUTSIDE OF THE U.S. IN LAST 30 DAYS: No - HPI Onset: Other - this week Onset/Duration: Sudden Quality of pain: No pain Severity: Mild Pain Level: 2 Associated symptoms: None, Nausea Exacerbated by: Movement Relieved by: Denies Similar symptoms previously: Yes Recently seen / treated by doctor: No - Related Data Allergies/Adverse Reactions: No Known Allergies Allergy (Verified 08/14/19 13:39) Past Medical History - General Information source: Patient - Social History Smoking Status: Current Every Day Smoker Cigarette use (# per day): Yes Chew tobacco use (# tins/day): No Smoking Education Provided: Yes Frequency of alcohol use: Heavy - Usually drinks a case of yadira per day Drug Abuse: None Lives with: Family Family History: Reviewed & Not Pertinent Patient has suicidal ideation: No Patient has homicidal ideation: No Renal/ Medical History: Denies: Hx Peritoneal Dialysis Psychiatric Medical History: Reports: Hx Depression, Hx Post Traumatic Stress Disorder Review of Systems - Review of Systems Constitutional: See HPI, Malaise, Weakness EENT: No symptoms reported Cardiovascular: No symptoms reported Respiratory: No symptoms reported Gastrointestinal: See HPI, Nausea Genitourinary: No symptoms reported Male Genitourinary: No symptoms reported Musculoskeletal: No symptoms reported Skin: No symptoms reported Hematologic/Lymphatic: No symptoms reported Neurological/Psychological: See HPI, Weakness, Tremor Physical Exam - Vital signs Vitals: Pulse Ox 100 08/14/19 12:57 Interpretation: Tachycardic - General General appearance: Anxious - HEENT Head: Normocephalic, Atraumatic Eyes: Normal Pupils: PERRL Sinus: Normal Nasal: Normal Mouth/Lips: Normal Mucous membranes: Normal Pharynx: Normal Neck: Normal - Respiratory Respiratory status: No respiratory distress Chest status: Nontender Breath sounds: Normal Chest palpation: Normal - Cardiovascular Rhythm: Tachycardia Heart sounds: Normal auscultation Murmur: No - Abdominal Inspection: Normal Distension: No distension Bowel sounds: Normal Tenderness: Nontender Organomegaly: No organomegaly - Rectal Hemorrhoids: Other - deferred - Genitourinary Scrotum: Other - deferred - Back Back: Normal - Extremities General upper extremity: Other - tremors non parkinson - Neurological Neuro grossly intact: Yes Cognition: Normal Orientation: AAOx4 Mikhail Coma Scale Eye Opening: Spontaneous [place] Coma Scale Verbal: Oriented Mikhail Coma Scale Motor: Obeys Commands Mikhail Coma Scale Total: 15 Speech: Normal Motor strength normal: LUE, RUE, LLE, RLE Sensory: Normal - Psychological Associated symptoms: Anxious - Skin Skin Temperature: Warm Skin Moisture: Diaphoretic Course - Vital Signs Vital signs: Temp Pulse Resp BP Pulse Ox 98.4 F 100 08/14/19 13:32 08/14/19 12:57 - Laboratory Result Diagrams: 08/14/19 12:50 08/14/19 12:50 Laboratory results interpreted by me: 08/14/19 08/14/19 08/14/19 12:50 12:50 13:41 WBC 10.8 H RBC 3.76 L Hgb 10.3 L Hct 31.2 L RDW 16.7 H Lymph % (Auto) 5.4 L Absolute Neuts (auto) 9.6 H Seg Neutrophils % 89.0 H Sodium 136.0 L Chloride 95 L Carbon Dioxide 21 L Anion Gap 20 H Glucose 202 H AST 70 H ALT 56 H Urine Protein 100 H Urine Ketones 20 H Salicylates < 1.0 L Acetaminophen < 10 L Critical Care Note - Critical Care Note Total time excluding time spent on procedures (mins): 90 Comments: Patient reported he would like [facility] be [facility] however it would appear Fatou at the ID knows about this case and he has a scheduled appointment on 25 August at [facility] behavioral [facility] evaluated this patient. She informed him that patient may go home if physically cleared. Discharge - Discharge Clinical Impression: Tachycardia Alcohol withdrawal Qualifiers: Complication of substance-induced condition: uncomplicated Qualified Code(s): F10.230 - Alcohol dependence with withdrawal, uncomplicated Condition: Good Disposition: HOME, SELF-CARE Additional Instructions: Stop drinking alcohol ..on a incremental method. That is drink smaller and smaller amounts. Take Ativan 1 mg at bedtime. Follow-up with personal doctor next week and also follow-up with [facility] appointment on [facility] August for [facility] See evaluated today by behavioral health Jonnie. Prescriptions: Lorazepam [Ativan 1 mg Tablet] 1 mg PO HSP PRN #5 tablet PRN Reason: Referrals: [facility] [Primary [facility] Provider] - Follow up as needed
[2019-08-14 13:09] LABS: ABSOLUTE LYMPHOCYTES (AUTO) 0.6 10^3/uL (0.5-4.7); ABSOLUTE MONOCYTES (AUTO) 0.6 10^3/uL (0.1-1.4); ABSOLUTE NEUT (AUTO) 9.6 10^3/uL (1.7-8.2); BASOPHILS % (AUTO) 0.4 % (0-2); HEMATOCRIT 31.2 % (37.9-51.0); HEMOGLOBIN 10.3 g/dL (13.5-17.0); LYMPHOCYTES % (AUTO) 5.4 % (13-45); MEAN CORPUSCULAR HEMOGLOBIN 27.4 pg (27.0-33.4); MEAN CORPUSCULAR VOLUME 83 fl (80-97); MONOCYTES % (AUTO) 5.2 % (3-13); PLATELET COUNT 399 10^3/uL (150-450); RED BLOOD COUNT 3.76 10^6/uL (4.35-5.55); RED CELL DISTRIBUTION WIDTH 16.7 % (11.5-14.0); TOTAL CELLS COUNTED % (AUTO) 100 %; WHITE BLOOD COUNT 10.8 10^3/uL (4.0-10.5)
[2019-08-14] MEDS ORDERED: LORAZEPAM INJ 2 MG/1 ML VIAL IV ONE (13:10)
[2019-08-14] MEDS ORDERED: MAGNESIUM SULFATE/D5W 1 GM/100 ML RTUPB IV ONE (13:12)
[2019-08-14] MEDS ORDERED: THIAMINE HCL 100 MG, FOLIC ACID 1 MG in NORMAL SALINE 250 ML IV ONE (13:13)
[2019-08-14 13:31] LABS: ALKALINE PHOSPHATASE 80 U/L (38-126); BILIRUBIN,TOTAL 0.7 mg/dL (0.2-1.3); BLOOD UREA NITROGEN 12 mg/dL (7-20); GLUCOSE 202 mg/dL (75-110); POTASSIUM 3.6 mmol/L (3.6-5.0); TOTAL PROTEIN 7.8 g/dL (6.3-8.2)
[2019-08-14 13:36] LABS: CARBON DIOXIDE 21 mmol/L (22-30); CHLORIDE 95 mmol/L (98-107)
[2019-08-14 13:37] LABS: ASPARTATE AMINO TRANSFERASE 70 U/L (17-59)
[2019-08-14 13:38] LABS: ACETAMINOPHEN < 10 ug/mL (10-30); ALCOHOL < 10 mg/dL (NONE DETECTED); ANION GAP 20 (5-19); SALICYLATE < 1.0 mg/dL (2.0-20.0)
[2019-08-14] MEDS ORDERED: ONDANSETRON HCL INJ/PF 4 MG/2 ML SDV IV ONE (13:55)
[2019-08-14 13:59] LABS: APPEARANCE,URINE CLEAR; BILIRUBIN,URINE NEGATIVE (NEGATIVE); COLOR,URINE YELLOW; GLUCOSE, URINE NEGATIVE (NEGATIVE); KETONES,URINE 20 mg/dL (NEGATIVE); LEUKOCYTE ESTERASE,URINE NEGATIVE (NEGATIVE); NITRITE,URINE NEGATIVE (NEGATIVE); PROTEIN,URINE 100 mg/dL (NEGATIVE); URINE SPECIFIC GRAVITY 1.026; UROBILINOGEN,URINE NEGATIVE mg/dL (<2.0)
[2019-08-14 14:21] LABS: URINE AMPHETAMINES SCREEN NEGATIVE; URINE BARBITURATES SCREEN NEGATIVE; URINE BENZODIAZEPINES SCREEN NEGATIVE; URINE COCAINE SCREEN NEGATIVE; URINE MARIJUANA (THC) SCREEN NEGATIVE; URINE METHADONE SCREEN NEGATIVE; URINE PHENCYCLIDINE SCREEN NEGATIVE
[2019-08-14 18:03] VITALS: BP 133/72
--- NOTE | 2019-08-14 19:23 | EKG REPORT ---
SEVERITY:- BORDERLINE ECG - SINUS TACHYCARDIA BORDERLINE T ABNORMALITIES, INFERIOR LEADS : Confirmed by: Miguel John 14-Aug-2019 19:23:13
== END 2019-08-14 18:21 | disposition home or self-care (01) ==
LOC: ER 12:34
DX: R00.0 Tachycardia, unspecified (principal); F10.230 Alcohol dependence with withdrawal, uncomplicated; F17.210 Nicotine dependence, cigarettes, uncomplicated; R53.1 Weakness
CPT/HCPCS: 93005; 99291; 99292; 96375; 96365; 96366; 96368; 36415; 80307 ×4; 85025; 80053; 81001; 93010; J3490; J2060; J3475; J3411; J2405; J7030; J7050

== ENCOUNTER 2019-08-27 12:29 | Emergency (ER) | payer OTHER ==
--- NOTE | 2019-08-27 12:44 | ER Document Report ---
ED Medical Screen (RME) - General Chief Complaint: Alcohol Withdrawl Stated Complaint: ALCOHOL WITHDRAWL Time Seen by Provider: 08/27/19 12:39 Primary Care Provider: YENNY WOODALL [Primary Care Provider] - Follow up as needed Mode of Arrival: Wheelchair Information source: Patient Notes: HPI; 39-year-old male presents emergency room requesting detox from alcohol as well as suicidal ideation. Patient states he drinks about half a gallon of alcohol a day. States his last drink was around 8 AM this morning. States he recently detoxed a week ago but continues to drink. Denies any suicidal plan, however he does state "I was hoping to drink myself to " PE: Alert and oriented x3. Lungs: Clear to auscultation without rales rhonchi or wheezes. Heart: Tachycardic without murmurs, rubs, gallops. Patient is cooperative, tearful in triage. I have greeted and performed a rapid initial assessment of this patient. A comprehensive ED assessment and evaluation of the patient, analysis of test results and completion of the medical decision making process will be conducted by additional ED providers. I have specifically instructed the patient or family members with the patient to immediately return to any nursing staff should anything change in the patient's condition or with their chief complaint. TRAVEL OUTSIDE OF THE [place] IN LAST 30 DAYS: No - Related Data Allergies/Adverse Reactions: No Known Allergies Allergy (Verified 08/14/19 13:39) Past Medical History - Social History Family history: Thyroid Disfunction Renal/ Medical History: Denies: Hx Peritoneal Dialysis Psychiatric Medical History: Reports: Hx Depression, Hx Post Traumatic Stress Disorder Physical Exam - Vital signs Vitals: Temp Pulse Resp BP Pulse Ox 99.0 F 120 H 17 139/73 H 96 08/27/19 12:34 08/27/19 12:34 08/27/19 12:34 08/27/19 12:34 08/27/19 12:34 Course - Vital Signs Vital signs: Temp Pulse Resp BP Pulse Ox 99.0 F 120 H 17 139/73 H 96 08/27/19 12:34 08/27/19 12:34 08/27/19 12:34 08/27/19 12:34 08/27/19 12:34 Doctor's Discharge - Discharge Referrals: [facility] [Primary Care Provider] - Follow up as needed
[2019-08-27 13:15] LABS: ABSOLUTE BASOPHILS # (AUTO) 0.1 10^3/uL (0.0-0.2); ABSOLUTE LYMPHOCYTES (AUTO) 1.9 10^3/uL (0.5-4.7); ABSOLUTE MONOCYTES (AUTO) 0.2 10^3/uL (0.1-1.4); ABSOLUTE NEUT (AUTO) 3.3 10^3/uL (1.7-8.2); BASOPHILS % (AUTO) 1.8 % (0-2); EOSINOPHILS % (AUTO) 0.7 % (0-6); HEMATOCRIT 36.6 % (37.9-51.0); LYMPHOCYTES % (AUTO) 33.9 % (13-45); MEAN CORPUSCULAR HEMOGLOBIN 26.3 pg (27.0-33.4); MEAN CORPUSCULAR HGB CONC 32.8 g/dL (32.0-36.0); MEAN CORPUSCULAR VOLUME 80 fl (80-97); MONOCYTES % (AUTO) 4.4 % (3-13); PLATELET COUNT 517 10^3/uL (150-450); RED BLOOD COUNT 4.56 10^6/uL (4.35-5.55); SEGMENTED NEUTROPHILS % (AUTO) 59.2 % (42-78); TOTAL CELLS COUNTED % (AUTO) 100 %; WHITE BLOOD COUNT 5.6 10^3/uL (4.0-10.5)
[2019-08-27 13:34] LABS: ALBUMIN 4.9 g/dL (3.5-5.0); ALKALINE PHOSPHATASE 90 U/L (38-126); ANION GAP 15 (5-19); ASPARTATE AMINO TRANSFERASE 49 U/L (17-59); BILIRUBIN,TOTAL 0.4 mg/dL (0.2-1.3); BLOOD UREA NITROGEN 13 mg/dL (7-20); CALCIUM 8.8 mg/dL (8.4-10.2); CARBON DIOXIDE 22 mmol/L (22-30); CHLORIDE 103 mmol/L (98-107); GLUCOSE 121 mg/dL (75-110); TOTAL PROTEIN 8.3 g/dL (6.3-8.2)
[2019-08-27 13:41] LABS: APPEARANCE,URINE CLEAR; BILIRUBIN,URINE NEGATIVE (NEGATIVE); COLOR,URINE YELLOW; GLUCOSE, URINE NEGATIVE (NEGATIVE); KETONES,URINE NEGATIVE (NEGATIVE); LEUKOCYTE ESTERASE,URINE NEGATIVE (NEGATIVE); NITRITE,URINE NEGATIVE (NEGATIVE); PROTEIN,URINE 100 mg/dL (NEGATIVE); URINE SPECIFIC GRAVITY 1.023; UROBILINOGEN,URINE NEGATIVE mg/dL (<2.0)
[2019-08-27] MEDS ORDERED: PHENOBARBITAL INJ 65 MG/ML VIAL IV ONE (13:41)
[2019-08-27 13:42] LABS: ACETAMINOPHEN < 10 ug/mL (10-30); SALICYLATE < 1.0 mg/dL (2.0-20.0)
[2019-08-27] MEDS ORDERED: NORMAL SALINE 1000 ML 1,000 ML IV ONE (13:42)
--- NOTE | 2019-08-27 13:42 | ER Document Report ---
ED General - General Chief Complaint: Suicidal Ideation Stated Complaint: ALCOHOL WITHDRAWL Time Seen by Provider: 08/27/19 12:39 [facility] Care Provider: [facility] [[facility]] - Follow up as needed Mode of Arrival: Wheelchair Notes: Patient presents with "I want a detox bed" last drink 8 AM feeling tremulous and anxious moderate to severe. No seizure activity no nausea no vomiting. Denies belly pain or chest pain. Not suicidal. TRAVEL OUTSIDE OF THE [place] IN LAST 30 DAYS: No - Related Data Allergies/Adverse Reactions: No Known Allergies Allergy (Verified 08/14/19 13:39) Past Medical History - General Information source: Patient - Social History Smoking Status: Never Smoker Frequency of alcohol use: Heavy Drug Abuse: None Family History: Reviewed & Not Pertinent Patient has homicidal ideation: No Renal/ Medical History: Denies: Hx Peritoneal Dialysis Psychiatric Medical History: Reports: Hx Depression, Hx Post Traumatic Stress Disorder Review of Systems - Review of Systems Notes: REVIEW OF SYSTEMS GEN: Denies fever, chills, weight loss ENT: Denies sore throat, nasal discharge, ear pain EYES: Denies blurry vision, eye pain, discharge CV: Denies chest pain, palpitations, edema RESP: Denies cough, shortness of breath, wheezing GI: Denies abdominal pain, nausea, vomiting, diarrhea MSK: Denies joint pain/swelling, edema, SKIN: Denies rash, skin lesions LYMPH: Denies swollen glands/lymph nodes NEURO: D Tomeka anxious PSYCH: No abuse PHYSICAL EXAMINATION General: No acute distress, well-nourished Head: Atraumatic, normocephalic ENT: Mouth normal, oropharynx moist, no exudates or tonsillar enlargement Eyes: Conjunctiva normal, pupils equal, lids normal Neck: No JVD, supple, no guarding CVS: Normal rate, regular rhythm, no murmurs Resp: No resp distress, equal and normal breath sounds bilaterally GI: tachyCardiac soft, no tenderness to palpation, no rebound or guarding Ext: No deformities, no edema, normal range of motion in upper and lower ext Back: No CVA or midline TTP Skin: No rash, warm Lymphatic: No lymphadeopathy noted Neuro: Awake, alert. Coarse tremor hands and tongue Physical Exam - Vital signs Vitals: Temp Pulse Resp BP Pulse Ox 99.0 F 120 H 17 139/73 H 96 08/27/19 12:34 08/27/19 12:34 08/27/19 12:34 08/27/19 12:34 08/27/19 12:34 Course - Re-evaluation Re-evalutation: 08/27/19 13:42 Moderate alcohol withdrawal no suicidal ideation likely dehydrated Fluids phenobarbital loading will help to discharge with outpatient detox 08/27/19 15:51 Patient's labs show that alcohol otherwise essentially normal. I spoke with [facility] and they actually try to transfer him to a [place] inpatient re[facility]. I told him he will need medical detox. He was given a phenobarbital load, and reassessed him afterward. Heart rate was down around 100, he was arousable to loud voice but still felt anxious. I have written him for a 3-hour every 1 hour Ativan 2 mg p.o. regimen, have given him additional p.o. fluids and he is medically cleared. He is already on IVC paperwork from [facility]. - Vital Signs Vital signs: Temp Pulse Resp BP Pulse Ox 98.0 F 114 H 20 104/63 99 08/27/19 15:48 08/27/19 15:48 08/27/19 15:48 08/27/19 15:48 08/27/19 15:48 - Laboratory Result Diagrams: 08/27/19 12:59 08/27/19 12:59 Laboratory results interpreted by me: 08/27/19 08/27/19 08/27/19 12:59 12:59 13:23 Hgb 12.0 L Hct 36.6 L MCH 26.3 L RDW 18.0 H Plt Count 517 H Glucose 121 H Total Protein 8.3 H Urine Protein 100 H Salicylates < 1.0 L Acetaminophen < 10 L Serum Alcohol 324 H* Critical Care Note - Critical Care Note Total time excluding time spent on procedures (mins): 31 Comments: The above patient is critically ill. Not including procedures, but including direct re-evaluations, speaking with patient and/or consultants, interpreting results, and documenting, I spent the total amount of minute listed listed above on critical care time Discharge - Discharge Clinical Impression: Uncomplicated alcohol withdrawal Condition: Good Disposition: PSYCH HOSP/UNIT Referrals: [facility] [Primary Care [facility]] - Follow up as needed
[2019-08-27 13:45] LABS: ALCOHOL 324 mg/dL (NONE DETECTED)
[2019-08-27 13:56] LABS: URINE AMPHETAMINES SCREEN NEGATIVE; URINE BARBITURATES SCREEN NEGATIVE; URINE COCAINE SCREEN NEGATIVE; URINE MARIJUANA (THC) SCREEN NEGATIVE; URINE METHADONE SCREEN NEGATIVE; URINE PHENCYCLIDINE SCREEN NEGATIVE
[2019-08-27 13:58] LABS: URINE BENZODIAZEPINES SCREEN UNCONFIRMED POSITIVE
--- NOTE | 2019-08-27 14:55 | PSYCHOLOGICAL NOTE ---
Psych Note - Psych Note Date seen by psych provider: 08/27/19 Time seen by psych provider: 13:55 Psych Note: Reason for Consult: Suicidal ideation Patient presented to [facility] ED via POV asking for Detox. He reports to intake staff he wants to kill himself with a plan to drink himself to . Clinician spoke with local [facility]. They report the patient had a phone appointment yesterday with Dr. Hassan. During that appointment, he reported relapse; currently drinking 1/2 gallon daily. He denied suicidal ideation during visit. Patient was discharged from [facility] on 08/20/2019. his home medications are zoloft 75mg daily, prazosin 2mg at bedtime and Vistaril 50mg at bedtime as needed. Patient only minimally engages with clinician. He reports that he came to [facility] ED for detox. He reports he has been having nightmares and visions in connection with his PTSD. Clinician asked patient why he did not discuss his emotions surrounding suicidal ideation with Dr. Hassan yesterday during his phone appointment. Patient is observed starting to cry and refused to further engage with clinician. Clinician attempted to reengage patient reminding him that staff both at [facility] and [facility] want to help, but he has to be honest with his thoughts and feelings. Patient continue to cry. After approximately 2 minutes, patient asked clinician how long clinician would sit there. It was clarified that clinician would stay with patient as long as patient wanted, patient requested clinician to leave room. Patient is alert and orientated to person, place, time and circumstance. Mood is dysphoric with tearful affect. clinician notes patient is currently into xicated. Patient reported suicidal ideation with a plan of drinking himself to upon arrival. Patient denied homicidal ideation. Delusions are absent behaviors congruent with an intact reality based presentation I organized and linear thought process. Eye contact is poor. Conversational speech is minimal, quiet and short. Intellectual abilities appear to be within the average range. Attention and concentration is fair. Insight, judgment, impulse control is poor. Clinical presentation: Alcohol intoxication; with use disorder, severe Suicidal ideation with plan Chronic PTSD symptoms Impression/plan: Patient is recommended for IVC. Patient is currently under the influence and and reporting suicidal ideation with a plan of drinking himself to . Patient is high risk due to his chronic PTSD symptoms and alcohol use disorder. Patient was just released from detox on 08/20/2019 however immediately relapsed upon returning home. There is significant concern the patient will engage in self-harm while intoxicated. Patient reports not taking his psychiatric medications when drinking; unfortunately, he is drinking a half a gallon daily. Dr. Ryder was consulted on the care and management of this patient; attending physician is in agreement with recommendations and disposition.
[2019-08-27] MEDS: LORAZEPAM 1 MG TABLET PO PRN ×3 (15:40→21:43)
[2019-08-27] MEDS ORDERED: PROMETHAZINE HCL INJ 25 MG/1 ML VIAL IV ONE (16:21)
--- NOTE | 2019-08-27 18:11 | EKG REPORT ---
SEVERITY:- BORDERLINE ECG - SINUS TACHYCARDIA BORDERLINE T WAVE ABNORMALITIES : Confirmed by: Bry Gatica MD 27-Aug-2019 18:10:51
[2019-08-27] MEDS ORDERED: DIAZEPAM INJ 10 MG/2 ML DISP.SYRIN IV ONE (22:10)
[2019-08-28] MEDS: LORAZEPAM 1 MG TABLET PO PRN ×5 (02:23→21:46)
--- NOTE | 2019-08-28 10:27 | ER Document Report ---
Doctor's Note Notes: 08/28/19 10:27 I reviewed the chart. I was not given report on the patient. Patient labs show that he is positive for benzodiazepines and alcohol at time of intake. Awaiting reevaluation by psychiatric team regarding placement or plan 08/28/19 17:08 Pending COVID tests patient will be accepted at [facility] for detox
--- NOTE | 2019-08-28 16:44 | PSYCHOLOGICAL NOTE ---
Psych Note - Psych Note Date seen by psych provider: 08/28/19 Time seen by psych provider: 12:00 Psych Note: Reason for Consult: Suicidal ideation Patient presented to [facility] ED via POV asking for Detox. He reports to intake staff he wants to kill himself with a plan to drink himself to . Check in conducted with patient: Patient provided plan of care. [facility] will accept pending negative COVID. Patient states he can drive himself. Patient is reminded he was placed on papers yesterday so [facility] will be transporting. Patient states he has no further questions. Clinical presentation: Alcohol withdrawal; with use disorder, severe Suicidal ideation with plan Chronic PTSD symptoms Impression/plan: Patient is recommended for continued IVC. Patient is high risk due to his chronic PTSD symptoms and alcohol use disorder. Patient was just released from detox on 08/20/2019 however immediately relapsed upon returning home. There is significant concern the patient will engage in self-harm while intoxicated. Patient reports not taking his psychiatric medications when drinking; unfortunately, he is drinking a half a gallon daily. Patient has been accepted by [facility]; transportation has been requested. Dr. Ryder was consulted on the care and management of this patient; attending physician is in agreement with recommendations and disposition. Case mangement: updated information faxed to [place] [id number] clinician spoke with Jose M Azevedo. Patient has been accepted pending rapid COVID test [id number] clinician contacted Jose M Azevedo to inform of negative COVID test. Accepting physician is Dr. Fuentes [id number] clinician requested transport
[2019-08-28 21:40] VITALS: BP 121/80
[2019-08-29] MEDS: LORAZEPAM 1 MG TABLET PO PRN (08:37)
== END 2019-08-29 08:50 ==
LOC: ER 12:29
DX: Z04.6 Encounter for general psychiatric examination, requested by authority (principal); Z03.818 Encounter for observation for suspected exposure to other biological agents ruled out; F10.230 Alcohol dependence with withdrawal, uncomplicated; F10.229 Alcohol dependence with intoxication, unspecified; R25.1 Tremor, unspecified
CPT/HCPCS: 93005; 99285; 96361; 96374; 96375; 36415; 80307 ×4; 85025; 87635; 80053; 81001; 93010; J3360; J2560; J2550; J7030; C9803